=== PATIENT | female | born 1945 | race Caucasian/White ===

== ENCOUNTER 2016-06-19 15:17 | Emergency (ER) | payer MEDICARE, OTHER ==
[~2016-06-19] VITALS: Ht 162.6 cm; Wt 72.7 kg
[2016-06-19 15:24] VITALS: BP 150/75; PULSE 81; RESP 22; O2SAT 100
[2016-06-19 15:39] LABS: BASOPHILS % (AUTO) 0.5 % (0-3); EOSINOPHILS % (AUTO) 1.3 % (0-5); MONOCYTES % (AUTO) 9.9 % (4-12); Mean Corpuscular Volume 91.1 fL (81-100); NEUTROPHILS % (AUTO) 59.2 % (40-74); Platelet Count 288 bil/L (150-400)
--- NOTE | 2016-06-19 15:43 | ED.REPORT ---
HPI-Chest Pain 40 and Over Date of Service Jun 19, 2016 ED Provider: Israel Hernandez MD Patient is a 70 year female who presents to the ED complaining of L chest pain onset 4 days ago. Per pain is described as an intense ache that radiates to her back. Her pain comes and goes but episodes can last up to 6 hours at a time. Her pain is worse with extended exertion and slightly better when resting. She denies shortness of breath, fever, cough, flu-like symptoms, diarrhea, or any other symptoms. Patient reports being under a lot of stress lately. Nursing Notes Stated Complaint: ACHING PAIN IN HEART AND CHEST Chief Complaint: Chest Pain Nursing Notes Reviewed: Yes Allergies: Coded Allergies: Sulfa (Sulfonamide Antibiotics) (Verified Allergy, Unknown, 06/19/16) General Time Seen by MD: 15:41 Chief Complaint Chest aching Hx Obtained From: Patient Sudden in Onset?: Yes Onset Occurred: 4 days ago Symptom Duration: Intermittent Similar Sx Previous: Yes Past Medical History Past Medical History Notes: 07/18/15 she had the following studies: Echo results: Interpretation Summary Normal left ventricle size with ejection fraction 55-60%. Moderately dilated left atrium. The bioprosthetic mitral valve is well-seated. Mild-moderate mitral regurgitation. The right ventricular systolic pressure is estimated at 30 mmHg assuming a right atrial pressure of 3 mm Hg. Mildly enlarged ascending aorta. Pharm stress test results: IMPRESSION: 1. Normal myocardial perfusion study for ischemia. 2. Normal left ventricle cavity size, without segmental wall motion abnormalities. The calculated left ventricle ejection fraction is within normal limits. 3. Expected hemodynamic response to pharmacologic stress testing. Past Medical History Heartburn Reports: Cancer (Breast ), Hypertension Past Surgical History Mitral valve replacement Family History Heart disease Social History Alcohol Use: 1-3 per day Ambulatory Status Independent Review of Systems Constitutional: Denies: Fever Respiratory: Denies: Non-productive cough, Shortness of breath Cardiovascular: Reports: Chest pain GI: Denies: Diarrhea Musculoskeletal: Reports: Back pain Complete sys rev & neg: except as marked. Physical Exam Initial Vital Signs Vital Signs (First) Date Time Temp Pulse Resp B/P Pulse Ox O2 Delivery O2 Flow Rate FiO2 06/19/16 15:24 37.1 81 22 150/75 100 Room Air Initial VS: Reviewed Head / Eyes: Atraumatic, Normocephalic Neck: Full range of motion Skin: Warm, Dry Neurologic: Alert, Oriented, Nonfocal Psychiatric: Mood/affect normal, Behavior normal, Normal thought content General/Constitutional: Awake, Alert, Well developed Respiratory / Chest: No respiratory distress, No chest tenderness Chest pain non-reproduceable Cardiovascular: Heart rate NL, Regular rhythm, Heart sounds NL Abdomen: Atraumatic, Soft, Non-tender Interpretation & Diagnostics Lab Results Interpretation Result Diagram: 06/19/16 1535 06/19/16 1535 Test 06/19/16 15:35 06/19/16 15:37 White Blood Count 6.0th/mm3 (3.8-10.1) Red Blood Count 5.04mil/mm3 (3.90-5.20) Hemoglobin 15.1g/dL (12.0-15.6) Hematocrit 45.9% (35.0-46.0) Mean Corpuscular Volume 91.1fL (81-100) Mean Corpuscular Hemoglobin 30.0pg (27.0-35.0) Mean Corpuscular Hemoglobin Concent 32.9% (32.0-37.0) Red Cell Distribution Width 13.0% (12.3-15.4) Platelet Count 288bil/L (150-400) Neutrophils (%) (Auto) 59.2% (40-74) Lymphocytes (%) (Auto) 29.1% (14-46) Monocytes (%) (Auto) 9.9% (4-12) Eosinophils (%) (Auto) 1.3% (0-5) Basophils (%) (Auto) 0.5% (0-3) D-Dimer < 0.5mg/L (<0.50) Sodium Level 141mEq/L (134-144) Potassium Level 4.0mEq/L (3.5-5.2) Chloride Level 104mEq/L (97-108) Carbon Dioxide Level 24mmol/L (18-29) Blood Urea Nitrogen 20mg/dL (8-27) Creatinine 0.85mg/dL (0.57-1.00) Estimat Glomerular Filtration Rate 95mL/min (>59) Glucose Level 93mg/dL (60-99) Calcium Level 9.7mg/dL (8.5-10.1) Magnesium Level 2.3mg/dL (1.6-2.6) Total Bilirubin 0.3mg/dL (0.0-1.2) Aspartate Amino Transf (AST/SGOT) 23U/L (0-50) Alanine Aminotransferase (ALT/SGPT) 16U/L (0-32) Alkaline Phosphatase 109U/L (25-165) Troponin T < 0.010ug/L (0.0-0.011) Pro-B-Type Natriuretic Peptide 363.8pg/mL (0-301) Total Protein 7.6g/dL (6.4-8.4) Albumin 4.5g/dL (3.4-5.0) Hold Garvin Top Tube Received (Received) ECG Interpretation ECG Interpretation: Sinus rate 72 Borderline prolonged NE interval Probable anterior infarct, old Time: 15:54 Interpreted by: ED physician X-Ray Chest Interpretation Chest Xray Interpretation: IMPRESSION: No acute process. Dictated by: Melinda Tyson M.D. on 06/19/2016 at 15:56 Approved by: Melinda Tyson M.D. on 06/19/2016 at 15:56 View: Portable, 1 view Interpretation / Wet Read by: Interpret - Radiologist Re-Eval/Medical Decision Time of Eval: 17:31 Re-Evaluation/Progress Note: Rechecked patient. Discussed lab and imaging results. Discussed plan for discharge with close follow up. Patient understands and agrees with plan. All questions addressed at this time. Counseled Regarding: Diagnosis, Lab results, Need for follow-up, When/why to return to ED Discharge & Departure Primary Impression: Chest pain Chest pain type: unspecified Qualified Code: R07.9 - Chest pain, unspecified Disposition: Home Discharge Condition All VS Reviewed: Yes Patient Instructions: Chest Pain (ED) Additional Instructions: No dangerous cause for your chest pain is discovered tonight. 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 Referrals: Kyleigh Wu (PCP) Scribe Attestation Portions of this note were transcribed by Pinky Villarreal. I, Dr. Hernandez personally performed the history, physical exam and medical decision-making; I reviewed and confirmed the accuracy of the information in the transcribed note. Signed by: Pinky Villarreal 06/19/16, 3498 copies to: Kyleigh Wu Kirk H MD Jun 19, 2016 15:42 PINKY VILLARREAL Jun 19, 2016 15:55
--- NOTE | 2016-06-19 15:58 | DRSVH ---
PROCEDURE: X-RAY CHEST ONE VIEW, PORTABLE ([id number]) INDICATIONS: CP TECHNIQUE: One view of the chest was acquired. COMPARISON: [facility], CR, XR CHEST 1VW (PORTABLE), 11/29/2015, 10:41. FINDINGS: Surgical changes and devices: Median sternotomy. Lungs and pleura: No pleural effusions or pneumothorax. Lungs are clear. Mediastinum: Mediastinal contours appear normal. Heart size is normal. Bones and chest wall: No suspicious bony lesions. Overlying soft tissues appear unremarkable. IMPRESSION: No acute process. Dictated by: Melinda Tyson M.D. on 06/19/2016 at 15:56 Approved by: Melinda Tyson M.D. on 06/19/2016 at 15:56
[2016-06-19 16:02] VITALS: BP 150/75; PULSE 81; RESP 26; O2SAT 97
[2016-06-19 16:05] LABS: Magnesium 2.3 mg/dL (1.6-2.6)
[2016-06-19 16:06] LABS: TROPONIN T < 0.010 ug/L (0.0-0.011)
[2016-06-19 17:10] VITALS: BP 130/58; PULSE 68; RESP 16; O2SAT 96
[2016-06-19 17:52] VITALS: BP 154/97; PULSE 70; RESP 16; O2SAT 100
== END 2016-06-19 17:53 | disposition home or self-care (01) ==
LOC: SED 15:17
DX: R07.9 Chest pain, unspecified (principal); I10 Essential (primary) hypertension; Z95.4 Presence of other heart-valve replacement; Z85.3 Personal history of malignant neoplasm of breast; Z88.2 Allergy status to sulfonamides